=== PATIENT | female | born 1965 | race Caucasian/White ===

== ENCOUNTER 2018-10-13 15:50 | Emergency (ER) | payer MEDICARE, OTHER ==
[~2018-10-13] VITALS: Ht 170.2 cm; Wt 83.9 kg
[~2018-10-13 15:50] MED LIST: ACET-2605 PO; ARIP15TA3 PO; CHOL50006 PO; DEXL60CA3 PO; DIVA500T54 PO; DOCU-270 PO; FERR325T28 PO; HYDR-4354 PO; MAGN400O6 PO; MECL12.582 PO; MELO-105 PO; MELO15TA13 PO; METH500T6 PO; POLY17PO4 PO; QUET400T PO; ROSU10TA2 PO; SENN8.6C5 PO; TRAM50TA2 PO; TRAZ-182 PO; [UNRECOGNIZED DRUG - CODE] PO
--- NOTE | 2018-10-13 16:00 | NUR ---
LESTER FROM [facility] W C/O LT HIP PAIN RAD TO LT KNEE, S/P GLF, -SHORTENING, -KO. TO ER BED 11, HOOKED TO MONITOR, CHANGED TO GOWN, PROVIDED W WARM BLANKET, NOT IN DISTRESS, AWAITING MD UGARTE.
--- NOTE | 2018-10-13 16:02 | NUR ---
DR CM AT BEDSIDE
--- NOTE | 2018-10-13 17:25 | NUR ---
TECH ASSISTED PT TO WALK WITH WALKER. PT ABLE TO WALK FINE. MADE MD AWARE
--- NOTE | 2018-10-13 17:37 | NUR ---
CALLING [facility]AH FOR TRANSPORT TO [facility] @ [place]. ETA: 30 MINS TRIP #: [id number]
--- NOTE | 2018-10-13 18:09 | NUR ---
REPORT GIVEN TO DR CHAPO HENDRICKS, STAFF EDUCATOR OF MONTROSE Razer [phone]
--- NOTE | 2018-10-13 18:47 | NUR ---
Patient discharged to [facility] in stable condition. Written and verbal after care instructions given. Patient verbalizes understanding of instruction. Copies of Xray results given to commissioner of officials, pt will be brought back to [facility].
[2018-10-13 18:49] VITALS: BP 104/60
== END 2018-10-13 18:49 ==
LOC: ER 15:55
DX: S70.02XA Contusion of left hip, initial encounter (principal); G80.9 Cerebral palsy, unspecified; F32.9 Major depressive disorder, single episode, unspecified; Z79.899 Other long term (current) drug therapy; W18.39XA Other fall on same level, initial encounter; Y93.89 Activity, other specified; Y92.89 Other specified places as the place of occurrence of the external cause; Y99.8 Other external cause status
CPT/HCPCS: 72170-TC; 73502

== ENCOUNTER 2018-10-20 08:39 | Emergency (ER) | payer MEDICARE, OTHER ==
[~2018-10-20] VITALS: Ht 165.1 cm; Wt 66.7 kg
--- NOTE | 2018-10-20 09:39 | NUR ---
[facility] 30-40 MIN ETA TRIP#[id number]
--- NOTE | 2018-10-20 09:41 | NUR ---
ETA [id number]
--- NOTE | 2018-10-20 09:42 | NUR ---
APPLIED WALKER BOOT ON RIGHT LEG, ASSISTED PATIENT WITH AMBULATION. PATIENT WAS ABLE TO AMBULATE WITH A WALKER, SLOW BUT STEADY GAIT.
--- NOTE | 2018-10-20 10:21 | NUR ---
Patient discharged to facility in stable condition via ambulance. Report given to EMT. Written and verbal after care instructions given. Patient verbalizes understanding of instruction.
[2018-10-20 10:50] VITALS: BP 120/80
== END 2018-10-20 10:50 | disposition home or self-care (01) ==
LOC: ER 08:41
DX: S93.491A Sprain of other ligament of right ankle, initial encounter (principal); F32.9 Major depressive disorder, single episode, unspecified; Z98.890 Other specified postprocedural states; W22.8XXA Striking against or struck by other objects, initial encounter; Y93.89 Activity, other specified; Y92.89 Other specified places as the place of occurrence of the external cause; Y99.8 Other external cause status
CPT/HCPCS: 73610-TC

== ENCOUNTER 2018-11-28 16:42 | Emergency (ER) | payer MEDICARE, OTHER ==
[~2018-11-28] VITALS: Ht 170.2 cm; Wt 81.6 kg
--- NOTE | 2018-11-28 17:00 | NUR ---
ABDOMINAL PAIN; + TENDERNESS NOTED ON ASSESSMENT- STARTED THIS AFTERNOON. PATIENT A/OX2, BREATHING EVEN AND UNLABORED, NO SOB NOTED, NEEDS ATTENDED.
[2018-11-28 17:47] LABS: BASOPHILS % (AUTO) 0.6 % (0.0-2.0); MEAN CORPUSCULAR HGB CONC 34 g/dl (31.0-36.0)
[2018-11-28 18:00] LABS: CALCIUM, SERUM 8.7 mg/dL (8.5-10.1); CREATININE 0.6 mg/dL (0.6-1.3); POTASSIUM 4.4 mmol/L (3.5-5.1)
[2018-11-28 18:03] LABS: ALBUMIN 3.1 g/dL (3.4-5.0); BILIRUBIN,TOTAL 0.2 mg/dL (0.2-1.0); TOTAL PROTEIN, SERUM 6.7 g/dL (6.4-8.2)
--- NOTE | 2018-11-28 18:30 | NUR ---
PATIENT HAD BM X1, PERICARE PROVIDED.
[2018-11-28 18:41] LABS: WHITE BLOOD COUNT (AUTO) 5.4 K/uL (4.3-11.0)
[2018-11-28 18:42] LABS: HEMATOCRIT 36 % (33-45); HEMOGLOBIN 12.2 g/dL (11.5-14.8); MEAN CORPUSCULAR VOLUME 101 fL (82-100); PLATELET COUNT (AUTO) 190 /CMM (150-450); RED BLOOD CELL COUNT(AUTO) 3.61 MIL/uL (4.0-5.2)
[2018-11-28 18:43] LABS: LYMPHOCYTES % (AUTO) 41.3 % (20.0-44.0); MONOCYTES % (AUTO) 8.9 % (2.0-12.0); NEUTROPHILS # (AUTO) 2.5 /CMM (1.8-8.9); NEUTROPHILS % (AUTO) 47.2 % (43.0-81.0)
[2018-11-28 18:44] LABS: LYMPHOCYTES # (AUTO) 2.2 /CMM (0.8-4.8); MONOCYTES # (AUTO) 0.5 /CMM (0.1-1.30)
[2018-11-28 19:24] LABS: APPEARANCE,URINE Clear (CLEAR); BILIRUBIN,URINE Negative (NEGATIVE); BLOOD, URINE Negative Ery/uL (NEGATIVE); COLOR,URINE Yellow (YELLOW); KETONES,URINE Negative (NEGATIVE); NITRITE, URINE Negative (NEGATIVE); PH,URINE 7.5 (5.0-8.0); PROTEIN,URINE Negative (NEGATIVE); UGLUCOSE Negative (NEGATIVE); UROBILINOGEN,URINE 0.2 EU/dL (0.2)
[2018-11-28 19:30] LABS: LEUKOCYTE ESTERASE ,URINE NEGATIVE (NEGATIVE)
[2018-11-28] MEDS ORDERED: LACTULOSE 10 G/15 ML UDC (PYXIS) PO ONE (19:30)
[2018-11-28] MEDS ORDERED: LACTULOSE 10 G/15 ML UDC (PYXIS) ONE (19:44)
--- NOTE | 2018-11-28 19:55 | NUR ---
SARAH MENDEZ 45 MINS ([id number]), TRIP # [id number]
--- NOTE | 2018-11-28 21:13 | NUR ---
IV removed. Catheter intact and site benign. Pressure and 4x4 applied to site. No bleeding noted. Patient discharged to home in stable condition. Written and verbal after care instructions given. Patient verbalizes understanding of instruction. report given to emt transport.
[2018-11-28 21:16] VITALS: BP 118/72
--- NOTE | 2018-11-28 21:17 | NUR ---
report called nahum juarez [facility] staff rodriguez.
== END 2018-11-28 21:18 | disposition home or self-care (01) ==
LOC: ER 16:46
DX: R10.31 Right lower quadrant pain (principal); R60.0 Localized edema; F32.9 Major depressive disorder, single episode, unspecified; Z98.890 Other specified postprocedural states; Z79.899 Other long term (current) drug therapy
CPT/HCPCS: 36415; 71045-TC; 76856-TC; 80048-TC; 80076-TC; 81000-TC; 83690-TC; 85025-TC; 85730-TC

== ENCOUNTER 2019-03-23 14:59 | Emergency (ER) | payer MEDICARE, OTHER ==
[~2019-03-23] VITALS: Ht 170.2 cm; Wt 76.2 kg
[~2019-03-23 14:59] MED LIST changes: +MECL-182 PO; -MECL12.582 PO
--- NOTE | 2019-03-23 15:08 | NUR ---
CAROLINA RAINES [facility]M [facility] FOR DYSURIA X 2 DAYS. PATIENT A/OX4, BREATHING EVEN AND UNLABORED, NO SOB NOTED, NEEDS ATTENDED.
[2019-03-23] MEDS ORDERED: PHENAZOPYRIDINE HCL 200 MG TABLET ONE (15:20)
[2019-03-23] MEDS ORDERED: PHENAZOPYRIDINE HCL 200 MG TABLET PO ONE (15:30)
[2019-03-23 15:53] LABS: APPEARANCE,URINE Clear (CLEAR); BILIRUBIN,URINE Negative (NEGATIVE); BLOOD, URINE Negative Ery/uL (NEGATIVE); COLOR,URINE Yellow (YELLOW); KETONES,URINE 15 (NEGATIVE); LEUKOCYTE ESTERASE ,URINE Negative (NEGATIVE); NITRITE, URINE Negative (NEGATIVE); PROTEIN,URINE Negative (NEGATIVE); UGLUCOSE Negative (NEGATIVE)
--- NOTE | 2019-03-23 16:30 | NUR ---
Patient is resting comfortably in bed with eyes closed. Easily aroused. VSS
--- NOTE | 2019-03-23 16:37 | NUR ---
ARRANGED BLS TRANSPORT WITH [facility], SPOKE WITH LEONARDA, ETA: 1999 TRIP NUMBER: [id number]
--- NOTE | 2019-03-23 16:49 | NUR ---
BRITT VELASQUEZ CALLED TRANSPORT WILL BE HERE IN 30 MINS
[2019-03-23 17:49] VITALS: BP 106/68
== END 2019-03-23 17:49 ==
LOC: ER 15:05
DX: R30.0 Dysuria (principal); G80.9 Cerebral palsy, unspecified; F32.9 Major depressive disorder, single episode, unspecified; Z98.890 Other specified postprocedural states
CPT/HCPCS: 81000-TC; 84703-TC

== ENCOUNTER 2019-06-04 15:34 | Inpatient (IN) | payer MEDICARE, OTHER ==
[~2019-06-04] VITALS: Ht 170.2 cm; Wt 73.5 kg
--- NOTE | 2019-06-04 15:40 | NUR ---
[facility]IB [facility], C/O CHEST PAIN SINCE THIS MORNING. PATIENT A/OX3, BREATHING EVEN AND UNLABORED, NO SOB NOTED, C/O CHEST PAIN PS 7. CHANGED INTO GOWN, ATTACHED TO THE LUBE WORKER.
[2019-06-04] MEDS ORDERED: FLUO20CA42 PO (16:06)
[2019-06-04] MEDS ORDERED: ATOR20TA PO (16:06)
[2019-06-04] MEDS ORDERED: LORA-259 PO (16:06)
[2019-06-04] MEDS ORDERED: ZOLP5TAB8 PO (16:06)
[2019-06-04] MEDS ORDERED: MIRT45TA83 PO (16:06)
[2019-06-04] MEDS ORDERED: PANT40TA2 PO (16:06)
[2019-06-04] MEDS ORDERED: DIVA-78 PO (16:06)
[2019-06-04] MEDS ORDERED: CHOL100040 PO (16:06)
[2019-06-04] MEDS ORDERED: QUET25TA PO (16:06)
[2019-06-04] MEDS ORDERED: MORPHINE SULFATE INJ 4 MG/ML DISP.SYRIN ONE (16:22)
[2019-06-04 16:24] LABS: BASOPHILS % (AUTO) 0.8 % (0.0-2.0); EOSINOPHILS % (AUTO) 2.1 % (0.0-6.0); HEMATOCRIT 40 % (33-45); HEMOGLOBIN 13.2 g/dL (11.5-14.8); LYMPHOCYTES # (AUTO) 1.2 /CMM (0.8-4.8); LYMPHOCYTES % (AUTO) 30.6 % (20.0-44.0); MEAN CORPUSCULAR HGB CONC 33 g/dl (31.0-36.0); MEAN CORPUSCULAR VOLUME 98 fL (82-100); MONOCYTES # (AUTO) 0.7 /CMM (0.1-1.30); NEUTROPHILS # (AUTO) 1.8 /CMM (1.8-8.9); NEUTROPHILS % (AUTO) 47.5 % (43.0-81.0); PLATELET COUNT (AUTO) 221 /CMM (150-450); RED BLOOD CELL COUNT(AUTO) 4.04 MIL/uL (4.0-5.2); WHITE BLOOD COUNT (AUTO) 3.8 K/uL (4.3-11.0)
[2019-06-04] MEDS ORDERED: IV NS 0.9% 1,000 ML BAG IV ONE (16:30)
[2019-06-04] MEDS ORDERED: MORPHINE SULFATE INJ 2 MG/ML DISP.SYRIN IV ONE (16:30)
--- NOTE | 2019-06-04 16:35 | NUR ---
URINE SAMPLE OBTAINED VIA STRAIGHT CATH AND SENT TO LAB.
[2019-06-04 16:44] LABS: CARBON DIOXIDE 36 mmol/L (21-32); CHLORIDE 104 mmol/L (98-107); CREATININE 0.7 mg/dL (0.6-1.3); GLUCOSE 93 mg/dL (74-106); POTASSIUM 3.8 mmol/L (3.5-5.1); SODIUM SERUM 144 mmol/L (136-145); UREA NITROGEN, BLOOD 13 mg/dL (7-18)
[2019-06-04 16:47] LABS: CALCIUM, SERUM 8.7 mg/dL (8.5-10.1)
[2019-06-04 16:50] LABS: ALANINE AMINOTRANSFERASE 23 U/L (12-78); ALBUMIN 3.1 g/dL (3.4-5.0); ALKALINE PHOSPHATASE 57 U/L (46-116); ASPARTATE AMINOTRANSFERASE 19 U/L (15-37); BILIRUBIN,TOTAL 0.2 mg/dL (0.2-1.0); LIPASE 171 U/L (73-393); TOTAL PROTEIN, SERUM 7.1 g/dL (6.4-8.2)
--- NOTE | 2019-06-04 16:53 | NUR ---
CALLED FOR BED AND SUBITTED MOVE SHEET
[2019-06-04] MEDS ORDERED: ASPIRIN 81 MG TAB.CHEW PO ONE (17:00)
[2019-06-04] MEDS ORDERED: ASPIRIN 81 MG TAB.CHEW ONE (17:10)
--- NOTE | 2019-06-04 17:20 | NUR ---
Patient is resting comfortably in bed with eyes closed. Easily aroused.
[2019-06-04 17:42] LABS: BAND % (MANUAL) 4 % (0.0-5.0); EOSINOPHILS % (MANUAL) 3 % (0-4); LYMPHOCYTES % (MANUAL) 33 % (16-48); MONOCYTES % (MANUAL) 14 % (0-11.0); NEUTROPHILS % (MANUAL) 46 (42-76)
--- NOTE | 2019-06-04 17:47 | NUR ---
BED 261
[2019-06-04 18:14] LABS: APPEARANCE,URINE Clear (CLEAR); BILIRUBIN,URINE Negative (NEGATIVE); BLOOD, URINE Negative Ery/uL (NEGATIVE); COLOR,URINE Yellow (YELLOW); KETONES,URINE Negative (NEGATIVE); LEUKOCYTE ESTERASE ,URINE Negative (NEGATIVE); NITRITE, URINE Negative (NEGATIVE); PROTEIN,URINE Negative (NEGATIVE); UGLUCOSE Negative (NEGATIVE); UROBILINOGEN,URINE 0.2 EU/dL (0.2)
--- NOTE | 2019-06-04 18:16 | NUR ---
BED 306-1 TELE
--- NOTE | 2019-06-04 18:23 | NUR ---
REPORT GIVEN TO STEPHANIE LACAZAR FOR JIN.
[2019-06-04 20:00] VITALS: BP 121/82
--- NOTE | 2019-06-04 20:13 | NUR ---
PATIENT TRANSFERRED TO ROOM 306-2 VIA ACLS PROTOCOL. NO DISTRESS NOTED.
[2019-06-04] MEDS ORDERED: ACETAMINOPHEN 325 MG TABLET PO PRN (20:30)
[2019-06-04] MEDS ORDERED: MAG HYDROX/AL HYDROX/SIMETH 30 ML UDC PO PRN (20:30)
[2019-06-04] MEDS ORDERED: IBUPROFEN 200 MG TABLET PO PRN (20:30)
[2019-06-04] MEDS ORDERED: ONDANSETRON HCL/PF 4 MG/2 ML VIAL IVP PRN (20:30)
[2019-06-04] MEDS ORDERED: MAGNESIUM HYDROXIDE 30 ML UDC PO PRN (20:30)
[2019-06-04] MEDS ORDERED: Z GUARD REMEDY 2 OZ OINT TP PRN (20:30)
[2019-06-04] MEDS ORDERED: HYDROCODONE/APAP 10/325MG 1 EA TABLET PO PRN (20:30)
--- NOTE | 2019-06-04 20:30 | NUR ---
CITY BAILIFF NOTES: ADMISSION 54 Y/O female admitted for Chest pain. Patient is A/O x3, skin intact. Sinus rhythm in the Tele monitor. Tolerating room air, denies pain, no c/o nausea no vomiting. Safety measure in place.
[2019-06-04 20:36] VITALS: BP 121/82
[2019-06-04] MEDS ORDERED: MIRTAZAPINE 45 MG TABLET PO SCH (22:00)
[2019-06-04] MEDS ORDERED: QUETIAPINE FUMARATE 100 MG TABLET PO SCH (22:00)
[2019-06-04] MEDS ORDERED: ATORVASTATIN 10 MG TABLET PO SCH (22:00)
[2019-06-04] MEDS ORDERED: ZOLPIDEM TARTRATE 10 MG TABLET PO PRN (22:00)
[2019-06-05] VITALS (8 sets, daily range): BP systolic 100–116; BP diastolic 62–86
[2019-06-05 06:13] LABS: BASOPHILS % (AUTO) 0.4 % (0.0-2.0); EOSINOPHILS % (AUTO) 2.1 % (0.0-6.0); HEMATOCRIT 41 % (33-45); HEMOGLOBIN 13.5 g/dL (11.5-14.8); LYMPHOCYTES # (AUTO) 1.5 /CMM (0.8-4.8); LYMPHOCYTES % (AUTO) 43.7 % (20.0-44.0); MEAN CORPUSCULAR HGB CONC 33 g/dl (31.0-36.0); MEAN CORPUSCULAR VOLUME 98 fL (82-100); MONOCYTES # (AUTO) 0.5 /CMM (0.1-1.30); MONOCYTES % (AUTO) 15.9 % (2.0-12.0); NEUTROPHILS # (AUTO) 1.3 /CMM (1.8-8.9); NEUTROPHILS % (AUTO) 37.9 % (43.0-81.0); PLATELET COUNT (AUTO) 202 /CMM (150-450); RED BLOOD CELL COUNT(AUTO) 4.18 MIL/uL (4.0-5.2); WHITE BLOOD COUNT (AUTO) 3.4 K/uL (4.3-11.0)
--- NOTE | 2019-06-05 06:16 | NUR ---
VICE PRESIDENT [employer]LOBAL ADVERTISING SALES NOTES: END OF SHIFT REPORT Patient in bed, stable Oxygen saturation on room air. Sinus rhythm in the Tele monitor, denies chest pain, no acute events overnight. Plan for Cardio consult today. Fall precaution maintained. Will endorse to Oncoming RN.
[2019-06-05 06:57] LABS: ALBUMIN 2.5 g/dL (3.4-5.0); BILIRUBIN,TOTAL 0.2 mg/dL (0.2-1.0); CALCIUM, SERUM 8.4 mg/dL (8.5-10.1); CREATININE 0.6 mg/dL (0.6-1.3); MAGNESIUM 1.9 mg/dL (1.8-2.4); PHOSPHORUS 4.7 mg/dL (2.5-4.9); POTASSIUM 3.5 mmol/L (3.5-5.1); TOTAL PROTEIN, SERUM 6.1 g/dL (6.4-8.2)
[2019-06-05 07:01] LABS: THYROID STIMULATING HORMONE 2.172 uIU/mL (0.358-3.74)
--- NOTE | 2019-06-05 07:20 | NUR ---
tele opening notes Patient received on room air, no sob noted, a/o x3. On tele monitor and is showing sinus rhytm 80's. R ac 18 with no IVF at this time. Patient asleep and is comfortable in her bed. Bed at the lowest setting, call light within reach, side rails up x2.
[2019-06-05 08:08] LABS: IRON, SERUM 59 ug/dl (50-175); TOTAL IRON BINDING CAPACITY 283 ug/dl (250-450)
[2019-06-05 08:27] LABS: FERRITIN 162 ng/mL (8-388)
[2019-06-05] MEDS: LORAZEPAM 1 MG TABLET PO SCH ×2 (08:42→16:23)
[2019-06-05] MEDS: FLUOXETINE HCL 20 MG CAPSULE PO SCH (08:42)
[2019-06-05] MEDS: DOCUSATE SODIUM 100 MG CAPSULE PO SCH ×2 (08:42→16:23)
[2019-06-05] MEDS: QUETIAPINE FUMARATE 25 MG TABLET PO SCH ×3 (08:42→16:23)
[2019-06-05] MEDS: CHOLECALCIFEROL 1,000 UNIT TABLET (VIT D3) PO SCH (08:42)
[2019-06-05] MEDS: PANTOPRAZOLE 40 MG TABLET.DR PO SCH (08:42)
[2019-06-05] MEDS: ENOXAPARIN SODIUM 40 MG/0.4 ML DISP.SYRIN SQ SCH (08:42)
[2019-06-05] MEDS: DIVALPROEX SODIUM 500 MG TABLET.DR PO SCH ×3 (08:42→16:23)
[2019-06-05] MEDS ORDERED: FERROUS SULFATE (325 MG) 325 MG/TAB TABLET PO SCH (09:00)
--- NOTE | 2019-06-05 17:52 | NUR ---
rn closing notes Patient remains on room air, no sob noted, a/o x3, no IVF and has a R AC 18. Patients medication given. Patient lies down comfortably in her bed. Bed at the lowest setting, call light within reach, side rails up x2. Will give report to NOC RN for JIN bedside.
--- NOTE | 2019-06-05 20:00 | NUR ---
alternative education teacher: received rpeort form linda rn at 1925. pt in bed, sleeping, respirations even and unlabored. iv access patent and flushing well, on hl. safety precautions for fall initiated, call light in reach, will continue monitoring pt.
[2019-06-05] MEDS ORDERED: MIRTAZAPINE 15 MG TABLET PO SCH (22:00)
[2019-06-05] MEDS ORDERED: TRAZODONE 50 MG TABLET PO SCH (22:00)
--- NOTE | 2019-06-06 06:25 | NUR ---
end of shift report: pt sleeping, respirations even and unlabored. appears calm and comfortable. iv access remains patent and flushing well, on hl, no s/s of iv infiltration noted. all due meds administered as scheduled. pt voided in diaper. awaiting psych eval for polypharmacy. vs remains stable, needs attended. safety precautions for fall remains engaged, call light in reach, will endorse to day rn for continuity of care.
[2019-06-06 07:19] LABS: BASOPHILS % (AUTO) 0.6 % (0.0-2.0); EOSINOPHILS % (AUTO) 1.9 % (0.0-6.0); HEMATOCRIT 39 % (33-45); HEMOGLOBIN 12.8 g/dL (11.5-14.8); LYMPHOCYTES # (AUTO) 1.6 /CMM (0.8-4.8); LYMPHOCYTES % (AUTO) 45.8 % (20.0-44.0); MEAN CORPUSCULAR HGB CONC 33 g/dl (31.0-36.0); MEAN CORPUSCULAR VOLUME 97 fL (82-100); MONOCYTES # (AUTO) 0.6 /CMM (0.1-1.30); MONOCYTES % (AUTO) 16.7 % (2.0-12.0); NEUTROPHILS # (AUTO) 1.2 /CMM (1.8-8.9); PLATELET COUNT (AUTO) 193 /CMM (150-450); RED BLOOD CELL COUNT(AUTO) 3.97 MIL/uL (4.0-5.2); WHITE BLOOD COUNT (AUTO) 3.5 K/uL (4.3-11.0)
[2019-06-06 07:45] LABS: CALCIUM, SERUM 8.7 mg/dL (8.5-10.1); CREATININE 0.6 mg/dL (0.6-1.3); MAGNESIUM 1.9 mg/dL (1.8-2.4); PHOSPHORUS 4.4 mg/dL (2.5-4.9); POTASSIUM 3.9 mmol/L (3.5-5.1)
[2019-06-06] MEDS: PANTOPRAZOLE 40 MG TABLET.DR PO SCH (07:51)
[2019-06-06 08:00] VITALS: BP 109/68
--- NOTE | 2019-06-06 08:00 | NUR ---
MS RN OPENING NOTE RECEIVED PT AWAKE, ALERT AND ORIENTED X3. NO CARDIAC OR RESPIRATORY DISTRESS NOTED. NO SOB NOTED. SATURATING WELL ON ROOM. PT HAS NO COMPLAINTS OF PAIN OR DISCOMFORT AT THIS TIME. WILL CONTINUE TO MONITOR.
[2019-06-06] MEDS: QUETIAPINE FUMARATE 25 MG TABLET PO SCH ×3 (08:42→16:55)
[2019-06-06] MEDS: FLUOXETINE HCL 20 MG CAPSULE PO SCH (08:42)
[2019-06-06] MEDS: CHOLECALCIFEROL 1,000 UNIT TABLET (VIT D3) PO SCH (08:42)
[2019-06-06] MEDS: LORAZEPAM 1 MG TABLET PO SCH ×2 (08:42→16:56)
[2019-06-06] MEDS: DOCUSATE SODIUM 100 MG CAPSULE PO SCH ×2 (08:42→16:59)
[2019-06-06] MEDS: DIVALPROEX SODIUM 500 MG TABLET.DR PO SCH ×3 (08:42→16:55)
[2019-06-06] MEDS: ENOXAPARIN SODIUM 40 MG/0.4 ML DISP.SYRIN SQ SCH (08:43)
[2019-06-06 10:24] LABS: EOSINOPHILS % (MANUAL) 1 % (0-4); LYMPHOCYTES % (MANUAL) 39 % (16-48); MONOCYTES % (MANUAL) 24 % (0-11.0); NEUTROPHILS % (MANUAL) 36 (42-76)
--- NOTE | 2019-06-06 14:46 | NUR ---
MS/RN NOTES DR ORDER TO DISCONTINUE PROZAC AND REDUCE TRAZODONE 300MG PO HS.
[2019-06-06 16:00] VITALS: BP 112/63
--- NOTE | 2019-06-06 19:05 | NUR ---
MS RN NOTES RECEIVED PT IN BED AWAKE AND ABLE TO MAKE NEEDS KNOWN. PT A/O X3. RESPIRATIONS EVEN AND UNLABORED WITH NO S/S OF ACUTE DISTRESS OR SOB NOTED. NO COMPLAINTS OF PAIN AT THIS TIME. PT AWAITING PICKUP. SAFETY MEASURES IN PLACE WITH BED IN LOWEST LOCKED POSITION WITH SIDE RAILS UP X2. CALL LIGHT WITHIN REACH. WILL CONTINUE TO MONITOR.
--- NOTE | 2019-06-06 19:29 | NUR ---
MS/RN CLOSING NOTES Patient remains on room air, no sob noted, a/o x3, Patients medication given. patient is for discharge tonight. Patient lies down comfortably in her bed. Bed at the lowest setting, call light within reach, side rails up x2. Will give report to NOC RN for JIN bedside.
[2019-06-06 20:00] VITALS: BP 106/74
[2019-06-06] MEDS ORDERED: IPRATROPIUM NEB FS 0.5 MG/2.5 ML AMPUL.NEB NEB ONE (21:30)
[2019-06-06] MEDS ORDERED: ALBUTEROL FS 2.5 MG/0.5 ML VIAL.NEB NEB ONE (21:30)
[2019-06-06] MEDS ORDERED: TRAZODONE 50 MG TABLET PO SCH ×2 (22:00)
--- NOTE | 2019-06-06 22:30 | NUR ---
MS RN NOTES MD CANCELED DC AT THIS TIME. WILL CONTINUE TO MONITOR.
[2019-06-07] MEDS: PANTOPRAZOLE 40 MG TABLET.DR PO SCH (07:30)
--- NOTE | 2019-06-07 07:39 | NUR ---
MS RN NOTES PT IN BED AWAKE AND ABLE TO MAKE NEEDS KNOWN. PT A/O X3. RESPIRATIONS EVEN AND UNLABORED WITH NO S/S OF ACUTE DISTRESS OR SOB NOTED. NO COMPLAINTS OF PAIN AT THIS TIME. SAFETY MEASURES IN PLACE WITH BED IN LOWEST LOCKED POSITION WITH SIDE RAILS UP X2. CALL LIGHT WITHIN REACH. WILL ENDORSE TO ONCOMING NURSE FOR JIN.
[2019-06-07 08:00] VITALS: BP 106/64
--- NOTE | 2019-06-07 08:09 | NUR ---
MS/RN OPENING NOTES RECEIVED PT IN BED AWAKE. PT A/O X3. RESPIRATIONS EVEN AND UNLABORED WITH NO S/S OF ACUTE DISTRESS OR SOB NOTED. NO COMPLAINTS OF PAIN AT THIS TIME. SAFETY MEASURES IN PLACE WITH BED IN LOWEST LOCKED POSITION WITH SIDE RAILS UP X2. CALL LIGHT WITHIN REACH. WILL CONTINUE TO MONITOR.
[2019-06-07 08:14] LABS: BASOPHILS % (AUTO) 0.7 % (0.0-2.0); EOSINOPHILS % (AUTO) 4.2 % (0.0-6.0); HEMATOCRIT 37 % (33-45); HEMOGLOBIN 12.7 g/dL (11.5-14.8); LYMPHOCYTES # (AUTO) 1.4 /CMM (0.8-4.8); LYMPHOCYTES % (AUTO) 41.1 % (20.0-44.0); MEAN CORPUSCULAR HGB CONC 34 g/dl (31.0-36.0); MEAN CORPUSCULAR VOLUME 96 fL (82-100); MONOCYTES # (AUTO) 0.5 /CMM (0.1-1.30); MONOCYTES % (AUTO) 13.5 % (2.0-12.0); NEUTROPHILS # (AUTO) 1.4 /CMM (1.8-8.9); NEUTROPHILS % (AUTO) 40.5 % (43.0-81.0); PLATELET COUNT (AUTO) 187 /CMM (150-450); RED BLOOD CELL COUNT(AUTO) 3.86 MIL/uL (4.0-5.2); WHITE BLOOD COUNT (AUTO) 3.4 K/uL (4.3-11.0)
[2019-06-07] MEDS: QUETIAPINE FUMARATE 25 MG TABLET PO SCH ×3 (08:52→17:00)
[2019-06-07] MEDS: LORAZEPAM 1 MG TABLET PO SCH ×2 (08:52→17:00)
[2019-06-07] MEDS: DOCUSATE SODIUM 100 MG CAPSULE PO SCH ×2 (08:52→17:00)
[2019-06-07] MEDS: CHOLECALCIFEROL 1,000 UNIT TABLET (VIT D3) PO SCH (08:53)
[2019-06-07] MEDS: DIVALPROEX SODIUM 500 MG TABLET.DR PO SCH ×3 (08:53→17:00)
[2019-06-07 08:56] LABS: CALCIUM, SERUM 8.4 mg/dL (8.5-10.1); CREATININE 0.6 mg/dL (0.6-1.3); POTASSIUM 3.7 mmol/L (3.5-5.1)
[2019-06-07] MEDS: ENOXAPARIN SODIUM 40 MG/0.4 ML DISP.SYRIN SQ SCH (08:58)
--- NOTE | 2019-06-07 09:20 | NUR ---
MS/RN NOTES PATIENT IS OUT IN THE UNIT FOR CHEST XRAY.
--- NOTE | 2019-06-07 09:38 | NUR ---
MS/RN NOTES PATIENT SATURATION OXYGEN IS 97% IN ROOM AIR AFTER 45MINUTES WITHOUT OXYGEN. WILL CONTINUE TO MONITOR.
--- NOTE | 2019-06-07 09:38 | NUR ---
MS/RN NOTES PATIENT IS BACK IN THE UNIT.
[2019-06-07 16:00] VITALS: BP 109/57
--- NOTE | 2019-06-07 18:23 | NUR ---
MS/RN NOTES PATIENT IS ALERT AND ORIENTED X3. DENIES PAIN AT THIS TIME. RESPIRATION REGULAR ND UNLABORED. SATURATION OXYGEN AT 95%. THE PATIENT IN NO APPARENT DISTRESS. SEEN AND EXAMINED BY MD WITH ORDERS MADE AND CARRIED OUT. PATIENT WILL TRANSFERRED TO [facility] PATIENT DISCHARGED AT 1820. PATIENT WAS GIVEN DISCHARGED INSTRUCTIONS AND PATIENT VERBALIZED UNDERSTANDING. THE PATIENT LEFT THE HOSPITAL IN STABLE CONDITION ACCOMPANIED BY 2 EMT VIA AMBULANCE.
[2019-06-07] MEDS ORDERED: TRAZODONE 50 MG TABLET PO SCH (22:00)
== END 2019-06-07 17:20 | disposition home or self-care (01) | DRG 202 ==
LOC: ER 15:35 → TELE 19:42 → MED 06-05 08:21
PROVIDERS: ADMIT Nurse Practitioner Acute Care; ATTEND Family Medicine
DX: J20.9 Acute bronchitis, unspecified (principal); D68.59 Other primary thrombophilia; E44.1 Mild protein-calorie malnutrition; K21.9 Gastro-esophageal reflux disease without esophagitis; G80.9 Cerebral palsy, unspecified; Z66 Do not resuscitate; F32.9 Major depressive disorder, single episode, unspecified; K59.00 Constipation, unspecified; E78.5 Hyperlipidemia, unspecified; Z98.890 Other specified postprocedural states; E86.0 Dehydration; Z79.899 Other long term (current) drug therapy; Z74.09 Other reduced mobility; F39 Unspecified mood [affective] disorder; G31.84 Mild cognitive impairment of uncertain or unknown etiology; D63.8 Anemia in other chronic diseases classified elsewhere
CPT/HCPCS: 36415; 71045-TC; 71046; 80048-TC; 80053-TC; 80061-TC; 80076-TC; 81000-TC; 82728-TC; 83540-TC; 83690-TC; 83735-TC; 83880; 84100-TC; 84439-TC; 84443-TC; 84484-TC; 85025-TC; 87081-TC; 87086-TC; 93307-TC; G0378; J1650; J2270; J7030

== ENCOUNTER 2019-06-19 14:26 | Emergency (ER) | payer MEDICARE, OTHER ==
[~2019-06-19] VITALS: Ht 162.6 cm; Wt 59.0 kg
[~2019-06-19 14:26] MED LIST changes: -ACET-2605 PO; -ARIP15TA3 PO; +ATOR20TA PO; +CHOL100040 PO; -CHOL50006 PO; -DEXL60CA3 PO; +DIVA-78 PO; -DIVA500T54 PO; +FLUO20CA42 PO; +LORA-259 PO; -MAGN400O6 PO; -MECL-182 PO; -MELO-105 PO; -MELO15TA13 PO; -METH500T6 PO; +MIRT45TA83 PO; +PANT40TA2 PO; -POLY17PO4 PO; +QUET25TA PO; -ROSU10TA2 PO; -SENN8.6C5 PO; -TRAM50TA2 PO; +ZOLP5TAB8 PO
--- NOTE | 2019-06-19 14:30 | NUR ---
CAROLINA [facility]INES [facility], ABDOMINAL PAIN SINCE 0600 THIS MORNING.
--- NOTE | 2019-06-19 14:35 | NUR ---
dr. sabiha merlos at bedside for eval.
[2019-06-19] MEDS ORDERED: ACETAMINOPHEN ES 500 MG TABLET ONE (14:43)
[2019-06-19 14:56] LABS: BASOPHILS % (AUTO) 0.6 % (0.0-2.0); EOSINOPHILS % (AUTO) 4.4 % (0.0-6.0); HEMATOCRIT 38 % (33-45); HEMOGLOBIN 12.7 g/dL (11.5-14.8); LYMPHOCYTES # (AUTO) 2.1 /CMM (0.8-4.8); LYMPHOCYTES % (AUTO) 39.5 % (20.0-44.0); MEAN CORPUSCULAR HGB CONC 33 g/dl (31.0-36.0); MEAN CORPUSCULAR VOLUME 98 fL (82-100); MONOCYTES # (AUTO) 0.5 /CMM (0.1-1.30); MONOCYTES % (AUTO) 8.9 % (2.0-12.0); NEUTROPHILS # (AUTO) 2.5 /CMM (1.8-8.9); NEUTROPHILS % (AUTO) 46.6 % (43.0-81.0); PLATELET COUNT (AUTO) 265 /CMM (150-450); RED BLOOD CELL COUNT(AUTO) 3.88 MIL/uL (4.0-5.2); WHITE BLOOD COUNT (AUTO) 5.4 K/uL (4.3-11.0)
[2019-06-19] MEDS ORDERED: ACETAMINOPHEN ES 500 MG TABLET PO ONE (15:00)
[2019-06-19 15:03] LABS: CALCIUM, SERUM 8.7 mg/dL (8.5-10.1); CREATININE 0.7 mg/dL (0.6-1.3); POTASSIUM 4.3 mmol/L (3.5-5.1)
[2019-06-19 15:09] LABS: ALBUMIN 2.8 g/dL (3.4-5.0); BILIRUBIN,TOTAL 0.2 mg/dL (0.2-1.0); TOTAL PROTEIN, SERUM 6.8 g/dL (6.4-8.2)
--- NOTE | 2019-06-19 15:51 | NUR ---
[facility] CALLED. ETA 1930
--- NOTE | 2019-06-19 16:03 | NUR ---
[facility] TRIP#[id number] ETA: [id number]
--- NOTE | 2019-06-19 17:30 | NUR ---
REPORT GIVEN TO CASTING DIRECTOR, PATIENT A/OX2, BREATHING EVEN AND UNLABORED, NO SOB NOTED, VITALS STABLE. Patient discharged to home in stable condition. Written and verbal after care instructions given. Patient verbalizes understanding of instruction.
[2019-06-19 17:35] VITALS: BP 127/70
== END 2019-06-19 17:36 ==
LOC: ER 14:35
DX: R10.30 Lower abdominal pain, unspecified (principal); R19.7 Diarrhea, unspecified; E78.5 Hyperlipidemia, unspecified; K21.9 Gastro-esophageal reflux disease without esophagitis; Z98.890 Other specified postprocedural states; Z79.899 Other long term (current) drug therapy
CPT/HCPCS: 36415; 80048-TC; 80076-TC; 83690-TC; 85025-TC

== ENCOUNTER 2019-06-30 22:33 | Inpatient (IN) | payer MEDICARE, OTHER ==
[~2019-06-30] VITALS: Ht 170.2 cm; Wt 72.6 kg
--- NOTE | 2019-06-30 22:40 | NUR ---
TARI EPPS [facility] FOR C/O NONPRODUCTIVE COUGH X3-4 DAYS. ALSO REPORTS SORE THROAT. DENIES SOB. DENIES PAIN. NO OTHER MEDICAL COMPLAINTS AT THIS TIME. PT AMBULATORY, VSS, RR EVEN AND UNLABORED ON RA. NO ACUTE DISTRESS NOTED. ON MONITOR AND MADE COMFORTABLE. DR BECKFORD AT BEDSIDE FOR EVAL.
--- NOTE | 2019-06-30 22:49 | NUR ---
FLU SWAB SENT TO STAT LAB
[2019-06-30] MEDS ORDERED: GUAIFENESIN/CODEINE 10 ML UDC ONE (22:52)
[2019-06-30] MEDS ORDERED: GUAIFENESIN/CODEINE 10 ML UDC PO PRN (23:00)
--- NOTE | 2019-06-30 23:00 | NUR ---
XRAY AT BEDSIDE
--- NOTE | 2019-06-30 23:30 | NUR ---
RECIEVED REPORT FROM SERVICE STATION CONSOLE OPERATOR DENIA. WILL CONTINUE TO MONITOR Pt.
[2019-06-30] MEDS ORDERED: DEXAMETHASONE SOD PHOSPHATE 10 MG/ML VIAL ONE (23:59)
[2019-07-01] MEDS ORDERED: DEXAMETHASONE SOD PHOSPHATE 10 MG/ML VIAL IM ONE
--- NOTE | 2019-07-01 00:08 | NUR ---
PAGED PT PMD
[2019-07-01 01:03] LABS: BASOPHILS % (AUTO) 0.4 % (0.0-2.0); EOSINOPHILS % (AUTO) 5.7 % (0.0-6.0); HEMATOCRIT 36 % (33-45); HEMOGLOBIN 12.1 g/dL (11.5-14.8); LYMPHOCYTES # (AUTO) 2.1 /CMM (0.8-4.8); LYMPHOCYTES % (AUTO) 36.6 % (20.0-44.0); MEAN CORPUSCULAR HGB CONC 33 g/dl (31.0-36.0); MEAN CORPUSCULAR VOLUME 98 fL (82-100); MONOCYTES # (AUTO) 0.6 /CMM (0.1-1.30); MONOCYTES % (AUTO) 10.3 % (2.0-12.0); NEUTROPHILS # (AUTO) 2.7 /CMM (1.8-8.9); PLATELET COUNT (AUTO) 215 /CMM (150-450); RED BLOOD CELL COUNT(AUTO) 3.72 MIL/uL (4.0-5.2); WHITE BLOOD COUNT (AUTO) 5.7 K/uL (4.3-11.0)
[2019-07-01 01:15] LABS: CARBON DIOXIDE 31 mmol/L (21-32); CHLORIDE 106 mmol/L (98-107); CREATININE 0.7 mg/dL (0.6-1.3); GLUCOSE 103 mg/dL (74-106); POTASSIUM 3.7 mmol/L (3.5-5.1); SODIUM SERUM 145 mmol/L (136-145); UREA NITROGEN, BLOOD 10 mg/dL (7-18)
[2019-07-01 01:37] LABS: ALANINE AMINOTRANSFERASE 13 U/L (12-78); ALBUMIN 2.7 g/dL (3.4-5.0); ALKALINE PHOSPHATASE 53 U/L (46-116); ASPARTATE AMINOTRANSFERASE 12 U/L (15-37); B-TYPE NATRIURETIC PEPTIDE 22 PG/ML (0-125); BILIRUBIN,DIRECT 0.1 mg/dL (0.0-0.2); BILIRUBIN,TOTAL 0.3 mg/dL (0.2-1.0); TOTAL PROTEIN, SERUM 7.2 g/dL (6.4-8.2)
--- NOTE | 2019-07-01 01:42 | NUR ---
IV ACCESS STARTED ON RFA #20G. LABS COLLECTED.
[2019-07-01] MEDS ORDERED: ACETAMINOPHEN 325 MG TABLET PO PRN (02:00)
[2019-07-01] MEDS ORDERED: ALBUTEROL FS 2.5 MG/0.5 ML VIAL.NEB NEB PRN (02:00)
[2019-07-01] MEDS ORDERED: ONDANSETRON HCL/PF 4 MG/2 ML VIAL IVP PRN (02:00)
[2019-07-01] MEDS ORDERED: HYDROCODONE/APAP 5/325MG 1 EACH TABLET PO PRN (02:00)
[2019-07-01] MEDS ORDERED: Z GUARD REMEDY 2 OZ OINT TP PRN (02:00)
[2019-07-01] MEDS ORDERED: MAGNESIUM HYDROXIDE 30 ML UDC PO PRN (02:00)
[2019-07-01] MEDS ORDERED: MAG HYDROX/AL HYDROX/SIMETH 30 ML UDC PO PRN (02:00)
--- NOTE | 2019-07-01 02:00 | NUR ---
REPORT GIVEN TO SHERRY INGE VELEZ. Pt WILL BE TRANSPORTED TO ROOM 114-2 PER ACLS PROTOCOL.
[2019-07-01] MEDS ORDERED: IBUPROFEN 600 MG TABLET PO PRN (02:30)
--- NOTE | 2019-07-01 02:30 | NUR ---
MS RN OPENING NOTES, RECEIVED PATIENT FROM ER VIA STRETCHER, AWAKE AND STABLE, A/OX3. ON 2L O2 TOLERATING WELL NO SOB OR ACUTE DISTRESS NOTED AT THIS TIME. PATIENT HAD NON-PRODUCTIVE COUGH FOR 3/4 DAYS NOT ASSOCIATED WITH FEVER, CHILLS OR CHEST PAIN. MD'S DIAGNOSES IS SOB. PATIENT HAS GENERALIZED WEAKNESS AND USES WALKER TO TO AMBULATE, PATIENT GETS SOB AFTER WALKING. PATIENT WAS CLEANED/ CHANGED/ BED BATH. ALL SAFETY MEASURES IN PLACE, BED IN LOW/LOCKED POSITION, CALL LIGHT WITHIN REACH. SIDE RAILS UPX2, WILL CONTINUE TO MONITOR.
[2019-07-01 04:00] VITALS: BP 101/61
--- NOTE | 2019-07-01 06:59 | NUR ---
MS RN CLOSING NOTES, PATIENT IN BED SLEEPING COMFORTABLY, A/OX3. ON 2L O2 TOLERATING WELL NO SOB OR ACUTE DISTRESS NOTED AT THIS TIME. PATIENT HAD NON-PRODUCTIVE COUGH FOR 3/4 DAYS NOT ASSOCIATED WITH FEVER, CHILLS OR CHEST PAIN. PATIENT HAS GENERALIZED WEAKNESS AND USES WALKER TO TO AMBULATE, PATIENT GETS SOB AFTER WALKING. ALL SAFETY MEASURES IN PLACE, BED IN LOW/LOCKED POSITION, CALL LIGHT WITHIN REACH. SIDE RAILS UPX2, WILL ENDORSE THE PATIENT TO AM RN FOR JIN
--- NOTE | 2019-07-01 07:34 | NUR ---
WOUND CARE CONSULT: PT REFUSED FULL SKIN ASSESSMENT BUT ALLOWED ASSESSMENT OF RT INDEX FINGER WHICH HAS RAISED BLISTER WITH DISCOLORATION AND TENDERNESS, PRESENT ON ADMISSION. RECOMMEND SURGICAL CONSULT. DR BEGUM TO BE CALLED FOR SURGICAL CONSULT. WILL SEE PRN. DAS IN AGREEMENT WITH PLAN OF CARE. Addendum: 07/01/19 at 0743 by VANESSA CLEVELAND WNDNU Amended: Links added.
[2019-07-01] MEDS: PANTOPRAZOLE 40 MG TABLET.DR PO SCH (07:53)
[2019-07-01 08:00] VITALS: BP 96/61
--- NOTE | 2019-07-01 08:00 | NUR ---
MS RN Notes Recieved patient in bed from mold shifter. No acute events noted. VSS. PAtient is alert and oriented x3. Ambulates with a walker. Right index finger red and inflamed. Patient on regular diet. No BM. IV access on right forearm 20g SL. Bed in lowest position, call light within reach, all measures taken to ensure client safety. Will continue to monitor.
[2019-07-01] MEDS: methylPREDNISolone SOD SUCC 125 MG/2ML VIAL IV SCH ×4 (08:16→20:51)
[2019-07-01] MEDS: CHOLECALCIFEROL 1,000 UNIT TABLET (VIT D3) PO SCH (08:17)
[2019-07-01] MEDS: DIVALPROEX SODIUM 500 MG TABLET.DR PO SCH ×3 (08:17→16:27)
[2019-07-01] MEDS: FLUOXETINE HCL 20 MG CAPSULE PO SCH (08:17)
[2019-07-01] MEDS: QUETIAPINE FUMARATE 25 MG TABLET PO SCH ×3 (08:17→16:28)
[2019-07-01] MEDS: LORAZEPAM 1 MG TABLET PO SCH ×2 (08:18→16:27)
[2019-07-01] MEDS: DOCUSATE SODIUM 100 MG CAPSULE PO SCH ×2 (08:19→16:28)
[2019-07-01] MEDS: FERROUS SULFATE (325 MG) 325 MG/TAB TABLET PO SCH (08:19)
[2019-07-01 12:00] VITALS: BP 96/61
[2019-07-01 16:00] VITALS: BP 108/60
--- NOTE | 2019-07-01 19:00 | NUR ---
RECIEVED HER IN BED. ASLEEP. NOTED RESP EVEN AND UNLABORED. WHEN NAME CALLED SHE WILL TURN HER HEAD TOWARDS MY VOICE AND STATE "WHAT" SHE WILL OPEN HER EYES WHEN TOLD TO. NOTED SHE NEED ASSIST TO REACH FOR THE WATER AND JUICES AT THE BEDSIDE. SHE REMAINS LETHARGIC THRU THE NIGHT, BUT WILL ALWAYS AWAKEN WHEN HER NAME IS SPOKEN LOUDLY. NO SOB INCONTINENT UA WEARING A DIAPER.
--- NOTE | 2019-07-01 19:03 | NUR ---
MS RN Notes Patient is alert and oriented x3. Resting in bed comfortably. No signs of acute distress. Patient had 1BM and 1 Void on shift in diaper. Medications given as ordered. Wound care provided as ordered. Bed in lowest position, call light within reach, all measures taken to ensure client safety. Will endorse care to oncoming combine mechanicshift supervisor melting.
[2019-07-01 20:00] VITALS: BP 98/58
[2019-07-01] MEDS ORDERED: ATORVASTATIN 40 MG TABLET PO SCH (22:00)
[2019-07-01] MEDS ORDERED: ZOLPIDEM TARTRATE 5 MG TABLET PO SCH (22:00)
[2019-07-01] MEDS ORDERED: TRAZODONE 50 MG TABLET PO SCH (22:00)
[2019-07-01] MEDS ORDERED: QUETIAPINE FUMARATE 100 MG TABLET PO SCH (22:00)
[2019-07-01] MEDS ORDERED: MIRTAZAPINE 45 MG TABLET PO SCH (22:00)
[2019-07-02 04:00] VITALS: BP 103/58
[2019-07-02 06:23] LABS: BASOPHILS % (AUTO) 0.1 % (0.0-2.0); HEMATOCRIT 39 % (33-45); LYMPHOCYTES # (AUTO) 1.2 /CMM (0.8-4.8); LYMPHOCYTES % (AUTO) 8.9 % (20.0-44.0); MEAN CORPUSCULAR HGB CONC 33 g/dl (31.0-36.0); MEAN CORPUSCULAR VOLUME 97 fL (82-100); MONOCYTES % (AUTO) 7.2 % (2.0-12.0); NEUTROPHILS # (AUTO) 11.6 /CMM (1.8-8.9); NEUTROPHILS % (AUTO) 83.8 % (43.0-81.0); PLATELET COUNT (AUTO) 239 /CMM (150-450); WHITE BLOOD COUNT (AUTO) 13.8 K/uL (4.3-11.0)
[2019-07-02 06:42] LABS: CALCIUM, SERUM 8.9 mg/dL (8.5-10.1); CREATININE 0.7 mg/dL (0.6-1.3); MAGNESIUM 2.1 mg/dL (1.8-2.4); PHOSPHORUS 4.7 mg/dL (2.5-4.9); POTASSIUM 4.1 mmol/L (3.5-5.1)
[2019-07-02 07:10] VITALS: BP 105/58
--- NOTE | 2019-07-02 07:10 | NUR ---
RN NOTES RECEIVED PT ON BED, A/Ox3, NO DISTRESS NOTED , ON 2L O2 N/C , RESPIRATION EVEN AND UNLABORED, SR UP x3, CALL LIGHT WITHIN EASY REACH, BED LOCKED AND IN LOWEST POSITION, CONTINUE TO MONITOR .
[2019-07-02 08:00] VITALS: BP 118/72
[2019-07-02] MEDS: QUETIAPINE FUMARATE 25 MG TABLET PO SCH ×3 (09:00→12:16)
[2019-07-02] MEDS: LORAZEPAM 1 MG TABLET PO SCH (09:00)
[2019-07-02] MEDS: CHOLECALCIFEROL 1,000 UNIT TABLET (VIT D3) PO SCH (09:02)
[2019-07-02] MEDS: PANTOPRAZOLE 40 MG TABLET.DR PO SCH (09:02)
[2019-07-02] MEDS: FLUOXETINE HCL 20 MG CAPSULE PO SCH (09:02)
[2019-07-02] MEDS: FERROUS SULFATE (325 MG) 325 MG/TAB TABLET PO SCH (09:02)
[2019-07-02] MEDS: DOCUSATE SODIUM 100 MG CAPSULE PO SCH (09:02)
[2019-07-02] MEDS: methylPREDNISolone SOD SUCC 125 MG/2ML VIAL IV SCH ×2 (09:02→12:15)
[2019-07-02] MEDS: DIVALPROEX SODIUM 500 MG TABLET.DR PO SCH ×2 (09:04→12:15)
--- NOTE | 2019-07-02 14:21 | NUR ---
RN NOTES REPORT GIVEN TO [facility] FOR CONTINUITY OF CARE
[2019-07-02 15:49] VITALS: BP 108/83
--- NOTE | 2019-07-02 15:49 | NUR ---
RN NOTES REPORT GIVEN TO EMT , VSS STABLE, IV SITE D/JOSÉ MANUEL, PT LEFT THE FLOOR TO SNF IN STABLE CONDITION VIA AMBULANCE .
--- NOTE | 2019-07-02 17:06 | NUR ---
LATE ENTRY RN NOTES O2 SAT 93% ON RA AT 15:48 , NO SOB NOTED.
== END 2019-07-02 16:00 | DRG 153 ==
LOC: ER 22:33 → TELE1 07-01 01:54 → MEDSG1 07-01 02:53
PROVIDERS: ADMIT Family Medicine; ATTEND Family Medicine
DX: J02.8 Acute pharyngitis due to other specified organisms (principal); E44.0 Moderate protein-calorie malnutrition; Z68.25 Body mass index [BMI] 25.0-25.9, adult; E78.5 Hyperlipidemia, unspecified; D72.829 Elevated white blood cell count, unspecified; G80.9 Cerebral palsy, unspecified; F32.9 Major depressive disorder, single episode, unspecified; S60.420A Blister (nonthermal) of right index finger, initial encounter; X58.XXXA Exposure to other specified factors, initial encounter; Y92.89 Other specified places as the place of occurrence of the external cause; R09.02 Hypoxemia
CPT/HCPCS: 36415; 71045-TC; 80048-TC; 80061-TC; 80076-TC; 83735-TC; 83880; 84100-TC; 84484-TC; 85025-TC; 85378-TC; 87040-TC; 87081-TC; 97116-TC; 97530-TC; G0378; J1100; J2930

== ENCOUNTER 2019-12-31 06:47 | Emergency (ER) | payer MEDICARE, OTHER ==
[~2019-12-31] VITALS: Ht 170.2 cm; Wt 77.1 kg
--- NOTE | 2019-12-31 06:49 | NUR ---
BIB EMS C/O R ANKLE PAIN S/P SLIP AND FALL. POSTERIOR HEADACHE. (-) KO PER PT REPORT HIT BACK OF THE HEAD WHEN SHE FELL. PT IN BED 2, AAOX4, NOT IN ANY DISTRESS, -SOB, VSS, PENDING ER PROVIDER SHANEL
[2019-12-31] MEDS ORDERED: TRAMADOL HCL 50 MG TABLET ONE (07:21)
[2019-12-31] MEDS: TRAMADOL HCL 50 MG TABLET PO ONE (07:23)
--- NOTE | 2019-12-31 08:49 | NUR ---
CALLED TRANSPORT [facility] ETA 1030 PER KRYSTA.
--- NOTE | 2019-12-31 11:10 | NUR ---
Patient discharged to [facility] in stable condition. Written and verbal after care instructions given. Patient verbalizes understanding of instruction. Patient will be brought back to [facility].
[2019-12-31 11:12] VITALS: BP 120/71
[2019-12-31] MEDS ORDERED: ACETAMINOPHEN ES 500 MG TABLET ONE (21:48)
== END 2019-12-31 11:12 ==
LOC: ER 06:53
DX: S93.491A Sprain of other ligament of right ankle, initial encounter (principal); S09.8XXA Other specified injuries of head, initial encounter; F32.9 Major depressive disorder, single episode, unspecified; Z98.890 Other specified postprocedural states; Z79.899 Other long term (current) drug therapy; W06.XXXA Fall from bed, initial encounter; Y93.89 Activity, other specified; Y92.89 Other specified places as the place of occurrence of the external cause; Y99.8 Other external cause status
CPT/HCPCS: 70450-TC; 73610-TC